=== PATIENT | female | born 1990 | race Asian ===

== ENCOUNTER 2025-04-01 19:43 | Emergency (ER) | payer OTHER ==
[~2025-04-01] VITALS: Ht 157.5 cm; Wt 68.1 kg
[2025-04-01 20:08] VITALS: BP 128/77; PULSE 83; RESP 18; TEMP 98.2; O2SAT 99
== END 2025-04-01 23:39 | disposition home or self-care (01) ==
LOC: EMS 19:45
DX: S93.401A Sprain of unspecified ligament of right ankle, initial encounter (principal); F41.9 Anxiety disorder, unspecified; X50.1XXA Overexertion from prolonged static or awkward postures, initial encounter; Y93.89 Activity, other specified; Y92.89 Other specified places as the place of occurrence of the external cause; Y99.0 Civilian activity done for income or pay
CPT/HCPCS: 99283